=== PATIENT | male | born 1990 | race Caucasian/White ===

== ENCOUNTER 2017-07-18 11:59 | Emergency (ER) | payer OTHER ==
[2017-07-18 12:06] VITALS: TEMP 97.8; BMI 31.3
[2017-07-18] MEDS ORDERED: ACETAMINOPHEN 1000 MG/100 ML VIAL (NON FORMULARY) IVPB ONE (12:16)
--- NOTE | 2017-07-18 12:16 | PDOC ---
History of Present Illness - General Chief Complaint: Nausea/Vomiting Stated Complaint: VOMITING Time Seen by Provider: 07/18/17 12:05 History Source: Patient - History of Present Illness Timing/Duration: reports: constant, getting worse Abdominal Pain Onset Location: reports: RUQ, epigastric Past History - Past Medical History Allergies/Adverse Reactions: Allergies Allergy/AdvReac Type Severity Reaction Status Date / Time ibuprofen [From Motrin IB] Allergy Mild Hives Verified 07/18/17 12:03 Home Medications: Ambulatory Orders Famotidine [Pepcid] 20 mg PO DAILY #14 tablet 07/18/17 Mag Hydrox/Al Hydrox/Simeth [Mylanta Suspension -] 30 ml PO Q6H #1 bottle Sucralfate [Carafate -] 1 gm PO QID #56 tablet 07/18/17 Asthma: Yes COPD: No - Immunization History Immunization Up to Date: Yes - Suicide/Smoking/Psychosocial Hx Smoking Status: Yes Smoking History: Never smoked Have you smoked in the past 12 months: Yes Number of Cigarettes Smoked Daily: 0 If you are a former smoker, when did you quit?: 1 week ago Cigars Per Day: 0 Information on smoking cessation initiated: No 'Breaking Loose' booklet given: 08/04/15 Hx Alcohol Use: No Drug/Substance Use Hx: No Substance Use Type: None Abd/GI Specific PMHX - Complaint Specific PMHX GERD: No GI Ulcer Disease: No Review of Systems - Review of Systems Constitutional: No: Chills, Fever Respiratory: No: Cough, Shortness of Breath Cardiac (ROS): No: Chest Pain ABD/GI: Yes: Nausea, Vomiting. No: Diarrhea : No: Dysuria *Physical Exam - Vital Signs Last Vital Signs Temp Pulse Resp BP Pulse Ox 97.8 F 80 18 139/85 100 07/18/17 12:04 07/18/17 12:04 07/18/17 12:04 07/18/17 12:04 07/18/17 12:04 - Physical Exam Comments: 07/18/17 12:26 Disheveled male lying on stretcher and appears uncomfortable, + marijuana scent General Appearance: Yes: Appropriately Dressed, Moderate Distress HEENT: positive: Normal Voice Neck: positive: Supple Respiratory/Chest: negative: Respiratory Distress Gastrointestinal/Abdominal: positive: Normal Bowel Sounds, Tender, Soft, Other ( no obvious bruising to abd). negative: Distended, Guarding, Rebound Musculoskeletal: negative: CVA Tenderness Integumentary: positive: Dry, Warm Neurologic: positive: Fully Oriented, Alert, Normal Mood/Affect ED Treatment Course - LABORATORY CBC & Chemistry Diagram: 07/18/17 12:20 07/18/17 12:20 Medical Decision Making - Medical Decision Making 07/18/17 12:11 26-year-old male, ? undomiciled, bipolar, history of asthma, pre-diabetic, here with abdominal pain. 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 Last night developed 2-3 episodes of n/v mixed w/ bright red blood per pt. No change in bowel movements, coffee ground emesis, melena, bright red blood per rectum, f/c. No history of similar episode in the past. Denies excessive alcohol intake or illicit drug use, however patient and his belonging strongly smells of marijuana. at bedside See exam Upper abd pain w/ n/v and ? hematemesis Gastritis/GERD vs ulcer, less likely garfield olivarez tear, ? 2/2 reported trauma though mechanism low risk for intra-abd bleed -GI cocktail -zofran -IVF -labs including T&S and coags -drug screen give suspicion of drug use, though pt denies -FAST exam -reassess 07/18/17 12:53 07/18/17 12:57 Labs unremarkable. Patient continues to complain of some upper abdominal pain, but appears comfortable lying on stretcher in no apparent distress. FAST exam pending, though low suspicion for intra-abdominal bleed 07/18/17 14:36 Ultrasound read as negative. Patient's pain improved and able to tolerate po. Patient had no further episodes of hematemesis while in ED. Stable for discharge at this time with strict return precautions, otherwise given follow- up for GI *DC/Admit/Observation/Transfer Diagnosis at time of Disposition: Epigastric pain - Discharge Dispostion Disposition: HOME Condition at time of disposition: Improved - Prescriptions Prescriptions: Famotidine [Pepcid] 20 mg PO DAILY #14 tablet Mag Hydrox/Al Hydrox/Simeth [Mylanta Suspension -] 30 ml PO Q6H #1 bottle Sucralfate [Carafate -] 1 gm PO QID #56 tablet - Referrals Referrals: Shane Scruggs MD [Staff Physician] - - Patient Instructions Printed Discharge Instructions: Gastritis Additional Instructions: Blood work and ultrasound were negative today. The cause of your symptoms could possibly be due to gastritis versus acid reflux versus ulcer. Take medication as directed. Please call Dr. Meyers of GI on Wednesday to make an appointment for possible endoscopy - Post Discharge Activity
[2017-07-18] MEDS ORDERED: ONDANSETRON 4 MG/2 ML VIAL IVPUSH ONE (12:17)
[2017-07-18] MEDS ORDERED: SODIUM CHLORIDE 1,000 ML IV STA (12:17)
[2017-07-18] MEDS ORDERED: ACETAMINOPHEN INJECTION 100 ML IVPB ONE (12:25)
[2017-07-18] MEDS ORDERED: ONDANSETRON 4 MG/2 ML VIAL ONE (12:25)
[2017-07-18 12:29] LABS: BASO % 0.5 % (0-2.0); EOS % 2.2 % (0-4.5); HEMATOCRIT 42.9 % (35.4-49); LYMPH % 20.4 % (8-40); MCH 27.1 pg (25.7-33.7); MCHC 32.6 g/dl (32.0-35.9); MEAN PLT VOLUME 7.5 fl (7.5-11.1); MONO % 9.7 % (3.8-10.2); NEUT % 67.2 % (42.8-82.8); PLATELET COUNT 264 K/MM3 (134-434); RBC 5.17 M/mm3 (4.00-5.60); RDW 14.3 % (11.9-15.9); WHITE BLOOD COUNT 8.8 K/mm3 (4.0-10.0)
[2017-07-18 12:39] LABS: URINE APPEARANCE CLEAR; URINE BILIRUBIN NEGATIVE (NEGATIVE); URINE COLOR STRAW; URINE GLUCOSE (UA) NEGATIVE (NEGATIVE); URINE KETONE NEGATIVE (NEGATIVE); URINE LEUK ESTERASE NEGATIVE (NEGATIVE); URINE NITRITE NEGATIVE (NEGATIVE); URINE PROTEIN NEGATIVE (NEGATIVE); URINE UROBILINOGEN NEGATIVE mg/dL (0.2-1.0)
--- NOTE | 2017-07-18 12:43 | PDOC ---
*Physical Exam - Vital Signs Last Vital Signs Temp Pulse Resp BP Pulse Ox 97.8 F 80 18 139/85 100 07/18/17 12:04 07/18/17 12:04 07/18/17 12:04 07/18/17 12:04 07/18/17 12:04 ED Treatment Course - LABORATORY CBC & Chemistry Diagram: 07/18/17 12:20 07/18/17 12:20 - ADDITIONAL ORDERS Additional order review: 07/18/17 12:20 RBC 5.17 MCV 83.0 MCHC 32.6 RDW 14.3 MPV 7.5 Neutrophils % 67.2 D Lymphocytes % 20.4 D Monocytes % 9.7 Eosinophils % 2.2 Basophils % 0.5 - Medications Given in the ED: ED Medications Discontinued Medications Generic Name Dose Route Start Last Admin Trade Name Carlos PRN Reason Stop Dose Admin Acetaminophen 1,000 mg 07/18/17 12:16 07/18/17 12:32 Ofirmev Injection - IVPB 07/18/17 12:17 1,000 mg ONCE ONE Administration Ondansetron HCl 4 mg 07/18/17 12:17 07/18/17 12:32 Zofran Injection IVPUSH 07/18/17 12:18 4 mg ONCE ONE Administration Medical Decision Making - Medical Decision Making 07/18/17 12:35 26y M asthma presents with voimting. Pt states that a few days ago, he was climbing off a fork lift and stuck his mid chest against the corner of a display case. Since then, he has bee nhaving epigastric pain and vomiting that was brownish in color. Denies any diarrhea, melena, fever/chills. pt with moderate epigastric tenderness no rebound/guarding ddx gastritis, trauma, pancreatitis 07/18/17 15:01 pt feeling much beter labs unremarkabkle able to tolerate oral intake abd exam was soft nontender US showed no signs of free fluid *DC/Admit/Observation/Transfer Diagnosis at time of Disposition: Epigastric pain - Discharge Dispostion Disposition: HOME Condition at time of disposition: Improved - Prescriptions Prescriptions: Famotidine [Pepcid] 20 mg PO DAILY #14 tablet Mag Hydrox/Al Hydrox/Simeth [Mylanta Suspension -] 30 ml PO Q6H #1 bottle Sucralfate [Carafate -] 1 gm PO QID #56 tablet - Referrals Referrals: Shane Scruggs MD [Staff Physician] - - Patient Instructions Printed Discharge Instructions: Gastritis Additional Instructions: Blood work and ultrasound were negative today. The cause of your symptoms could possibly be due to gastritis versus acid reflux versus ulcer. Take medication as directed. Please call Dr. Meyers of GI on Wednesday to make an appointment for possible endoscopy - Post Discharge Activity
[2017-07-18 12:45] LABS: COCAINE, UR NEGATIVE ng/ml (CUTOFF=300); METHADONE, UR NEGATIVE ng/ml (CUTOFF=300); OPIATES, URI NEGATIVE ng/ml (CUTOFF=300); PHENCYCLIDINE,URINE NEGATIVE ng/ml (CUTOFF=25); URINE AMPHETAMINES NEGATIVE ng/ml (CUTOFF=500); URINE BARBITURATES NEGATIVE ng/ml (CUTOFF=200); URINE BENZODIAZEPINES NEGATIVE ng/ml (CUTOFF=200)
[2017-07-18 12:48] LABS: ALBUMIN 3.6 g/dl (3.4-5.0); ANION GAP 9 (8-16); BLOOD UREA NITROGEN 7 mg/dL (7-18); CALCIUM 9.1 mg/dL (8.5-10.1); CHLORIDE 105 mmol/L (98-107); CO2 25 mmol/L (21-32); GLUCOSE,RANDOM 95 mg/dL (74-106); LIPASE 66 U/L (73-393); POTASSIUM 4.5 mmol/L (3.5-5.1); SODIUM 139 mmol/L (136-145)
[2017-07-18 12:51] LABS: ALK PHOS 74 U/L (45-117); BILIRUBIN,TOTAL 0.3 mg/dL (0.2-1.0); CREATININE 0.7 mg/dL (0.7-1.3); SGOT/AST 14 U/L (15-37); SGPT/ALT 11 U/L (12-78); TOT PROT 7.7 g/dl (6.4-8.2)
[2017-07-18] MEDS ORDERED: PANTOPRAZOLE 40 MG TABLET (FP) PO ONE (12:52)
[2017-07-18] MEDS ORDERED: FAMOTIDINE IV 20 MG/12 ML VIAL IVPUSH ONE (12:52)
[2017-07-18] MEDS ORDERED: MAG HYDROX/AL HYDROX/SIMETH 30 ML UNIT-DOSE CUP PO ONE (12:52)
[2017-07-18] MEDS ORDERED: PANTOPRAZOLE 40 MG TABLET (FP) ONE (12:56)
[2017-07-18] MEDS ORDERED: MAG HYDROX/AL HYDROX/SIMETH 30 ML UNIT-DOSE CUP ONE (12:57)
[2017-07-18] MEDS ORDERED: FAMOTIDINE 20 MG/50 ML IVPB 20 MG/50 ML MG IVPB ONE (12:57)
[2017-07-18 15:03] VITALS: BP 134/74; PULSE 74
== END 2017-07-18 15:03 | disposition home or self-care (01) ==
LOC: JER 11:59
PROC: 3E033NZ Introduction of Analgesics, Hypnotics, Sedatives into Peripheral Vein, Percutaneous Approach (ICD-10-PCS; principal; 2017-07-18)
PROC: 3E033GC Introduction of Other Therapeutic Substance into Peripheral Vein, Percutaneous Approach (ICD-10-PCS; 2017-07-18)
PROC: 3E033GC Introduction of Other Therapeutic Substance into Peripheral Vein, Percutaneous Approach (ICD-10-PCS; 2017-07-18)
DX: K29.70 Gastritis, unspecified, without bleeding (principal); J45.909 Unspecified asthma, uncomplicated; R73.03 Prediabetes; Z59.0 Homelessness
CPT/HCPCS: 36415; 76700-TC; 80053; 80307; 81003; 83690; 85025; 96374; 96375; 99282-25; J0131; J7030

== ENCOUNTER 2020-10-20 13:33 | Emergency (ER) | payer OTHER ==
[2020-10-20 13:52] VITALS: BMI 32.8
[2020-10-20] MEDS ORDERED: ALPRAZolam 0.25 MG TABLET PO ONE (14:23)
[2020-10-20] MEDS ORDERED: ALPRAZolam 0.25 MG TABLET ONE (15:01)
[2020-10-20 15:06] LABS: BASO % 0.8 % (0-2.0); EOS % 4.6 % (0-4.5); HEMATOCRIT 44.6 % (35.4-49); LYMPH % 26.8 % (8-40); MCH 28.1 pg (25.7-33.7); MCHC 33.6 g/dl (32.0-35.9); MEAN CELL VOLUME 83.7 fl (80-96); MEAN PLT VOLUME 8.4 fl (7.5-11.1); MONO % 7.6 % (3.8-10.2); NEUT % 60.2 % (42.8-82.8); PLATELET COUNT 244 K/MM3 (134-434); RBC 5.32 M/mm3 (4.00-5.60); RDW 14.5 % (11.9-15.9); WHITE BLOOD COUNT 7.4 K/mm3 (4.0-10.0)
[2020-10-20 15:21] LABS: CHLORIDE 105 mmol/L (98-107); SODIUM 139 mmol/L (136-145)
[2020-10-20 15:24] LABS: ANION GAP 7 MMOL/L (8-16); BLOOD UREA NITROGEN 9.4 mg/dL (7-18); CO2 28 mmol/L (21-32); GLUCOSE,RANDOM 87 mg/dL (74-106)
[2020-10-20 15:27] LABS: CREATININE 0.8 mg/dL (0.55-1.3); SGOT/AST 13 U/L (15-37); SGPT/ALT 10 U/L (13-61)
[2020-10-20 15:28] LABS: BILIRUBIN,TOTAL 0.2 mg/dL (0.2-1); TOT PROT 7.6 g/dl (6.4-8.2)
[2020-10-20 15:29] LABS: ALK PHOS 78 U/L (45-117)
[2020-10-20 18:00] VITALS: BP 126/79; PULSE 68; TEMP 97.9
== END 2020-10-20 17:50 | disposition home or self-care (01) ==
LOC: JER 13:33
DX: F41.9 Anxiety disorder, unspecified (principal); R07.9 Chest pain, unspecified
CPT/HCPCS: 36415; 71046-TC-FY; 80053; 82550; 82553; 84484; 85025; 93005; 93010; 99285-25